=== PATIENT | male | born 1935 | race Caucasian/White ===

== ENCOUNTER 2018-04-26 15:42 | Inpatient (IN) | payer MEDICARE ==
--- NOTE | 2018-04-26 17:47 | RAD ---
HISTORY: chest pain COMPARISON: No prior. TECHNIQUE: Chest, one view. FINDINGS: LUNGS: Mild bibasilar atelectasis. Please note that chest x-ray has limited sensitivity for the detection of pulmonary masses. PLEURA: No significant pleural effusion identified. No definite pneumothorax . CARDIOVASCULAR: Median sternotomy wires. Cardiomegaly. Ectatic aorta. Dense atherosclerotic calcification present. OSSEOUS STRUCTURES: Degenerative changes. VISUALIZED UPPER ABDOMEN: Unremarkable. OTHER FINDINGS: None. IMPRESSION: Cardiomegaly. Ectatic aorta. Mild bibasilar atelectasis.
--- NOTE | 2018-04-26 17:53 | RAD ---
PROCEDURE: Radiographs of the pelvis. HISTORY: s/p fall - r/o fx COMPARISON: None available. FINDINGS: Examination limited by habitus. BONES: No acute displaced fracture. JOINTS: No dislocation. The sacroiliac joints appear intact. The pubic symphysis appears unremarkable. OTHER FINDINGS: Prostate radiation seeds. No significant joint effusion appreciated. Dense vascular calcifications. IMPRESSION: Limited single AP view provided of the pelvis without acute displaced fracture appreciated. Correlate clinically. CT of the pelvis recommended if high clinical index of suspicion for occult fracture.
[2018-04-26 18:14] LABS: BASO % 0.3 % (0.0-2.0); EOS # 0.1 K/uL (0.0-0.7); EOS % 1.7 % (0.0-4.0); HEMOGLOBIN 10.3 g/dL (12.0-18.0); LYMPH # 1.2 K/uL (1.0-4.3); LYMPH % 16.3 % (20.0-40.0); MEAN CELL VOLUME 84.7 fL (80.0-94.0); MEAN CORPUSCULAR HEMOGLOBIN 27.8 pg (27.0-31.0); MEAN CORPUSCULAR HGB CONC 32.9 g/dL (33.0-37.0); MEAN PLATELET VOLUME 7.9 fL (7.2-11.7); MONO # 0.6 K/uL (0.0-0.8); MONO % 8.3 % (0.0-10.0); NEUT # 5.6 K/uL (1.8-7.0); NEUT % 73.4 % (50.0-75.0); RBC 3.69 Mil/uL (4.40-5.90); RED CELL DISTRIBUTION WIDTH 14.9 % (11.5-14.5); WHITE BLOOD COUNT 7.6 K/uL (4.8-10.8)
--- NOTE | 2018-04-26 18:14 | C.PDOC ---
History Of Present Illness 82 y/o male with history of Alzheimer and Dementia brought to ED by family after patient found on floor at 2:30pm today. Patient states he fell and does not know when, complains of minimal pain to left pelvis. As per family patient had been declining in mentation rapidly and deny recent cough or fever. No other complaints at this time. <Melani GRAVESJarret - Last Filed: 04/26/18 18:15> - HPI History Per: Patient History/Exam Limitations: no limitations Onset/Duration Of Symptoms: Hrs <Melani GRAVESJarret - Last Filed: 04/26/18 18:15> <Hussein Hdez - Last Filed: 04/26/18 20:42> - HPI Chief Complaint (Nursing): Trauma Past Medical History Reviewed: Historical Data, Nursing Documentation, Vital Signs Vital Signs: Last Vital Signs Temp 98.1 F 04/26/18 15:51 Pulse 81 04/26/18 15:51 Resp 16 04/26/18 15:51 BP 151/52 H 04/26/18 15:51 Pulse Ox 98 04/26/18 15:51 - Medical History PMH: HTN Surgical History: Cholecystectomy Family History: States: No Known Family Hx - Social History Hx Alcohol Use: No Hx Substance Use: No - Immunization History Hx Tetanus Toxoid Vaccination: No Hx Influenza Vaccination: No Hx Pneumococcal Vaccination: No <Megganshital GRAVESJarret Last Filed: 04/26/18 18:15> Vital Signs: Last Vital Signs Temp 98.2 F 04/26/18 20:05 Pulse 60 04/26/18 20:05 Resp 16 04/26/18 20:05 BP 162/72 H 04/26/18 20:05 Pulse Ox 98 04/26/18 20:05 <Hussein Hdez - Last Filed: 04/26/18 20:42> Review Of Systems Constitutional: Negative for: Fever, Chills Gastrointestinal: Positive for: Abdominal Pain. Negative for: Nausea, Vomiting Skin: Negative for: Rash Neurological: Negative for: Headache <Melani GRAVESJarret Last Filed: 04/26/18 18:15> Physical Exam - Physical Exam Appears: Non-toxic, No Acute Distress Skin: Warm, Dry, No Rash Head: Atraumatic, Normacephalic Eye(s): bilateral: Normal Inspection Oral Mucosa: Dry Neck: Normal ROM, Supple Cardiovascular: Rhythm Regular Respiratory: Normal Breath Sounds, No Rales, No Rhonchi, No Wheezing Gastrointestinal/Abdominal: Soft, No Tenderness, No Guarding, No Rebound Extremity: Normal ROM, Capillary Refill (<2 seconds) Neurological/Psych: Oriented x3, Normal Speech <Jarret Polo DO Last Filed: 04/26/18 18:15> ED Course And Treatment ECG: Interpreted By Me, Viewed By Me ECG Rhythm: Sinus Rhythm Interpretation Of ECG: Bifascicular block, left axis deviation. Rate From EC (BPM) O2 Sat by Pulse Oximetry: 98 (RA) Pulse Ox Interpretation: Normal <Jarret Polo DO Last Filed: 04/26/18 18:15> - Laboratory Results Result Diagrams: 04/26/18 18:09 04/26/18 18:09 <Hussein Hdez - Last Filed: 04/26/18 20:42> Disposition <Jarret Polo DO Last Filed: 04/26/18 18:15> Discussed With : Rochelle Thurston Comment: accepted the patient on her service and took over the care at 8:41 PM Doctor Will See Patient In The: Hospital Counseled Patient/Family Regarding: Studies Performed, Diagnosis - Disposition Disposition Time: 19:00 - POA Present On Arrival: Falls Or Trauma, Poor Glycemic Control <Hussein Hdez - Last Filed: 04/26/18 20:42> - Disposition Disposition: HOSPITALIZED Condition: FAIR Forms: [facility] (Amharic) - Clinical Impression Clinical Impression: Contusion, Change in mental status, Dementia, Fall Critical Care Time - Scribe Statement The provider has reviewed the documentation as recorded by the Scribe Gena Avendaño All medical record entries made by the Scribe were at my direction and personally dictated by me. I have reviewed the chart and agree that the record accurately reflects my personal performance of the history, physical exam, medical decision making, and the department course for this patient. I have also personally directed, reviewed, and agree with the discharge instructions and disposition. <Jarret Polo DO Last Filed: 04/26/18 18:15> Decision To Admit <Jarret Polo DO Last Filed: 04/26/18 18:15> - Pt Status Changed To: Hospital Disposition Of: Inpatient - Admit Certification Admit to Inpatient:: After my assessment, the patient will require hospitalization for at least two midnights. This is because of the severity of symptoms shown, intensity of services needed, and/or the medical risk in this patient being treated as an outpatient. - InPatient: Physician Admission Certification: I certify that this patient requires 2 or more midnights of care for the following reason:: After my assessment, the patient will require hospitalization for at least two midnights. This is because of the severity of symptoms shown, intensity of services needed, and/or the medical risk in this patient being treated as an outpatient. - . Bed Request Type: Regular Admitting Physician: Rochelle Thurston <Hussein Hdez - Last Filed: 04/26/18 20:42> - . Patient Diagnosis: Contusion, Change in mental status, Dementia, Fall
[2018-04-26 18:24] LABS: INR 1.2; PROTHROMBIN TIME 12.7 SECONDS (9.7-12.2)
[2018-04-26 18:26] LABS: ALB/GLOB RATIO 1.1 (1.0-2.1); ALT/SGPT 21 U/L (21-72); AST/SGOT 30 U/L (17-59); BLOOD UREA NITROGEN 27 mg/dL (9-20); CALCIUM 9.6 mg/dl (8.6-10.4); GFR NON-AFRICAN AMERICAN 58
[2018-04-26] MEDS ORDERED: Sodium Chloride 0.9% 1,000 ML ONE (18:40)
[2018-04-26 18:49] LABS: URINE BACTERIA RARE (<OCC); URINE BILIRUBIN NEGATIVE (NEGATIVE); URINE BLOOD 1+ (NEGATIVE); URINE CLARITY Clear (Clear); URINE COLOR Yellow (YELLOW); URINE GLUCOSE (UA) NORMAL (Normal); URINE LEUKOCYTE ESTERASE NEG Leu/uL (Negative); URINE PROTEIN 1+ mg/dL (NEGATIVE); URINE UROBILINOGEN NORMAL mg/dL (0.2-1.0)
[2018-04-26] MEDS: Sodium Chloride 0.9% 1,000 ML IV SCH (19:10)
[2018-04-27 00:24] VITALS: RESP 20
[2018-04-27] MEDS: Sodium Chloride 0.9% 1,000 ML IV SCH ×2 (03:15→07:15)
--- NOTE | 2018-04-27 06:55 | CT ---
Date of service: 04/26/2018 PROCEDURE: CT HEAD WITHOUT CONTRAST. HISTORY: Head injury. COMPARISON: None available. TECHNIQUE: Axial computed tomography images were obtained through the head/brain without intravenous contrast. Radiation dose: Total exam DLP = 1099.78 mGy-cm. This CT exam was performed using one or more of the following dose reduction techniques: Automated exposure control, adjustment of the mA and/or kV according to patient size, and/or use of iterative reconstruction technique. FINDINGS: HEMORRHAGE: No intracranial hemorrhage. BRAIN: No mass effect or edema. Scattered focal lucencies in the subcortical and periventricular white matter suggestive for chronic microvascular ischemic change. VENTRICLES: Diffuse prominence of the ventricles consistent with atrophy. CALVARIUM: Unremarkable. PARANASAL SINUSES: Mild mucosal thickening of the ethmoid air cells. MASTOID AIR CELLS: Unremarkable as visualized. No inflammatory changes. OTHER FINDINGS: Intracranial arterial calcifications. IMPRESSION: No acute intracranial abnormality. Chronic microvascular ischemic change. Age-appropriate atrophy. Mild sinus mucosal disease. If symptoms persists, consider correlation with MRI. A preliminary report was generated at 7:53 p.m. on 04/26/[address] Jeremiah Subramanian from [employer].
[2018-04-27] MEDS: (Novolin R) Insulin Human Regular 100 units/ml vial SC SCH ×4 (08:42→21:37)
[2018-04-27] MEDS: Multiple Vitamins Tab PO SCH (09:57)
[2018-04-27] MEDS: POLYETHYLENE GLYCOL 3350 17 GM/Dose PACKET PO SCH (09:58)
[2018-04-27] MEDS: Enoxaparin 40 mg Syringe SC SCH (09:58)
--- NOTE | 2018-04-27 13:04 | PCM.PSYCH ---
Initial Psychiatric Evaluation - Initial Psychiatric Evaluation Chief Complaint (in patient's own words): "I'm OK" History of Present Illness and Precipitating Events: Patient seen, chart reviewed, case discussed. His 3 children were at bed side and they are also interviewed. Consult was asked for his AMS. HPI: As per the patients daughter, the patient is an 82-year-old , retired male with 9 adult children, who lives at home with his and one daughter. The patient was diagnosed with Alzheimers disease in January 2018. Prior to the diagnosis, the patient becoming increasingly forgetful for a couple months. In the past month, the patient has become verbally and physically abusive towards his and daughter, becoming easily agitated and irritable and having nights of restless sleep. He was also paranoid and blaming his with all sorts of irrational things. The patient is seen by a neurologist outpatient, who prescribed the patient Seroquel 25 mg at bed time and Aricept. The patient had a history of alcohol and tobacco use, but quit over 40 years ago. He is calmer now but has little insight and his MMSE is very low: 9 Past Psych History: denies Past Medical History: DM, HTN, HLD, CAD Family Psych History: Sister with Alzheimers disease Current Medications: Active Medications Generic Name Dose Route Start Last Admin Trade Name Shaye PRN Reason Stop Dose Admin Amlodipine Besylate 5 mg 04/27/18 10:00 04/27/18 09:57 Norvasc PO Not Given DAILY MARVIN Aspirin 81 mg 04/27/18 10:00 04/27/18 09:57 Ecotrin PO 81 mg DAILY MARVIN Administration Carvedilol 25 mg 04/27/18 10:00 04/27/18 09:59 Coreg PO Not Given BID MARVIN Clopidogrel Bisulfate 75 mg 04/27/18 10:00 04/27/18 09:58 Plavix PO 75 mg DAILY MARVIN Administration Donepezil HCl 10 mg 04/27/18 10:00 04/27/18 09:57 Aricept PO 10 mg DAILY MARVIN Administration Enoxaparin Sodium 40 mg 04/27/18 10:00 04/27/18 09:58 Lovenox SC 40 mg DAILY MARVIN Administration Glimepiride 2 mg 04/27/18 07:30 04/27/18 08:54 Amaryl PO Not Given ACBD MARVIN Sodium Chloride 1,000 mls @ 100 mls/hr 04/26/18 17:15 04/27/18 07:15 Sodium Chloride 0.9% IV 100 mls/hr .Q10H MARVIN Administration Insulin Human Regular 0 unit 04/27/18 07:30 04/27/18 12:28 Novolin R SC 2 units ACHS MARVIN Administration Protocol Lactulose 10 gm 04/26/18 22:18 Enulose PO DAILY PRN Constipation Losartan Potassium 25 mg 04/27/18 10:00 04/27/18 09:58 Cozaar PO Not Given DAILY MARVIN Multivitamins 1 tab 04/27/18 10:00 04/27/18 09:57 Hexavitamin PO 1 tab DAILY MARVIN Administration Polyethylene Glycol 17 gm 04/27/18 10:00 04/27/18 09:58 Miralax PO 17 gm DAILY MARVIN Administration Rosuvastatin Calcium 10 mg 04/27/18 22:00 Crestor PO HS MARVIN Tamsulosin HCl 0.4 mg 04/27/18 22:00 Flomax PO HS MARVIN Past Psychiatric History - Past Psychiatric History Previous Treatment History: None Pertinent Medical Hx (Current Medical&Sleep Prob, Allergies): Allergies Allergy/AdvReac Type Severity Reaction Status Date / Time No Known Allergies Allergy Verified 04/26/18 15:57 Aspirin [Ecotrin] 81 mg PO DAILY 04/26/18 Atorvastatin [Lipitor] 20 mg PO HS 04/26/18 Carvedilol [Coreg] 25 mg PO BID 04/26/18 Clopidogrel [Plavix] 75 mg PO DAILY 04/26/18 Glimepiride [amaRYL] 2 mg PO BID 04/26/18 Lactulose 10 gm PO DAILY 04/26/18 Linaclotide [Linzess] 290 mcg PO DAILY 04/26/18 Linagliptin [Tradjenta] 5 mg PO DAILY 04/26/18 Nitroglycerin 0.4 mg SL PRN PRN 04/26/18 Polyethylene Glycol 3350 [Miralax] 17 gm PO DAILY 04/26/18 Tamsulosin [Flomax] 0.4 mg PO DAILY 04/26/18 amLODIPine [Norvasc] 5 mg PO DAILY 04/26/18 Review of Systems - Neurological Neurological: Memory Loss - Psychiatric Psychiatric: Abnormal Sleep Pattern, Anxiety, Difficulty Concentrating, Irritability, Memory Loss, Mood Swings, Paranoia. absent: Hallucinations, Homicidal Ideation, Suicidal Ideation Mental Status Examination - Personal Presentation Personal Presentation: Looks stated age - Affect Affect: Constricted - Motor Activity Motor Activity: Calm - Reliability in Providing Information Reliability in Providing Information: Poor, due to cognitve impairment - Speech Speech: Organized - Mood Mood: Anxious - Formal Thought Process Formal Thought Process: No Impairment - Cognitive Functions Orientation: Person, Place ([facility]) DSM 5 DX - DSM 5 DSM 5 Diagnosis: Dementia, Alzheimer's type, with behavioral problems r/o delirium - Recommended/Plan of Treatment Treatment Recommendations and Plan of Treatment: Depakote for agitation Continue low dose seroquel at bedtime for now but d/c soon due to risks of use in dementia, albeit low Consider trazodone, ssri's, propranolol too Support and psychoed Close monitor Treat underlying conditions for possible delirium super-imposed on dementia 32 min
[2018-04-27] MEDS: Divalproex 250 mg DR Tab PO SCH (18:01)
--- NOTE | 2018-04-27 18:45 | CON ---
DATE: 04/27/2018 NEUROLOGY CONSULTATION CHIEF COMPLAINT: Change in mental status. HISTORY OF PRESENT ILLNESS: This is an 82-year-old man with history of type 2 diabetes mellitus, hyperlipidemia, hypertension, coronary artery disease with a family history of sister having Alzheimer's disease, who was recently diagnosed with Alzheimer's disease in 01/2008 by outpatient neurologist, has become increasingly forgetful for the past couple of months and has become verbally and physically abusive towards his and daughter and becomes easily agitated, having restless sleep at night. He is on Seroquel 25 mg p.o. at bedtime. The patient states he fell and does not know when, and he complains of no pain to his left pelvis. He has declining mentation, therefore, consulted. His Mini-Mental Status examination is 13/20. CT of the head showed age-appropriate atrophy and chronic ischemic changes. Psychiatry is on board. PAST MEDICAL HISTORY: As above. MEDICATIONS: Reviewed by nurse reconciliation sheet. ALLERGIES: NO KNOWN DRUG ALLERGIES. FAMILY HISTORY: Noncontributory. SOCIAL HISTORY: No illicit drug abuse, smoking, or ETOH abuse. REVIEW OF SYSTEMS: A 14-point review of systems negative except in the HPI. PHYSICAL EXAMINATION: GENERAL: The patient is sitting up in bed, in no acute distress. HEENT: Head is atraumatic, normocephalic. PERRLA. Extraocular movements intact. NECK: Supple. No JVD. No adenopathy noted. LUNGS: Clear to auscultation. No adventitious sounds. HEART: S1 and S2. Normal rate and rhythm. No murmurs, rubs, or gallops. ABDOMEN: Soft, nontender, nondistended. Bowel sounds present. EXTREMITIES: No clubbing. No cyanosis. Peripheral pulses are 2+ bilaterally. NEUROLOGIC: The patient is alert and oriented to self, not much of month or year. Recall after 5 minutes is 0/3. Poor attention span. Slow thought process. Slow cognitive thinking. Tangential thought process. Cranial nerves II through XII are intact. Motor exam: Moves all extremities equally. No pronator drift seen. Sensory exam: Decreased light touch to pinprick up to the calves bilaterally, decreased vibration of the toes. DTRs are 2+ throughout and 1 at both knees and ankles. Coordination: Gait deferred for now. LABORATORY DATA: Sodium is 139, potassium 4, chloride 104, carbon dioxide 24, BUN of 27, creatinine 1.2, random glucose 115. IMPRESSION: Change in mental status, Alzheimer's type dementia, behavioral disturbance with increasing cognitive decline. RECOMMENDATIONS: 1. Recommend Seroquel from 25 to 50 mg at bedtime. 2. Delirium precautions. 3. He is on Depakote, which will act as a mood stabilizer. 4. Continue Aricept at 10 mg. We will add Namenda another 10 mg for Alzheimer-type dementia. 5. Frequent orientation throughout the day and continue aspirin and Plavix for stroke prevention. Thank you for this consult. Jacky Pena MD
[2018-04-28 07:35] LABS: IRON 28 ug/dL (49-181)
[2018-04-28 07:37] LABS: HDL CHOLESTEROL 55 mg/dL (30-70)
[2018-04-28 07:44] LABS: % IRON SATURATION 10 (20-55); TOTAL IRON BINDING CAPACITY 278 ug/dL (250-450)
[2018-04-28 07:54] LABS: LDL CHOLESTEROL 60 mg/dL (0-129)
[2018-04-28] MEDS: (Novolin R) Insulin Human Regular 100 units/ml vial SC SCH ×3 (08:12→18:20)
[2018-04-28 08:26] LABS: FOLATE > 20.0 ng/mL
[2018-04-28] MEDS: POLYETHYLENE GLYCOL 3350 17 GM/Dose PACKET PO SCH (09:55)
[2018-04-28] MEDS: Divalproex 250 mg DR Tab PO SCH ×2 (09:55→18:19)
[2018-04-28] MEDS: Multiple Vitamins Tab PO SCH (09:55)
[2018-04-28] MEDS: Enoxaparin 40 mg Syringe SC SCH (09:55)
--- NOTE | 2018-04-28 10:12 | HP ---
The patient was seen and examined at bedside on 04/27/2018. CHIEF COMPLAINT: Alerted mental status. HISTORY OF PRESENT ILLNESS: The patient is an 82-year-old male with history of dementia, brought to the emergency department by family after the patient was found on the floor. The patient states that he fell and does not know when and what happened. He complains of minimal pain to the left pelvis. As per family, the patient is declining in the mentation rapidly, and denies recent cough or fever. No hematuria or hematochezia. No headache or dizziness. When I saw the patient early in the morning, two daughters and one son were standing at the bedside. They gave me history and told me that the patient's mental status is deteriorating, sometime he is getting aggressive and hard to control, and he lives with his , sometime is afraid of him. PAST MEDICAL HISTORY: Hypertension, cholecystectomy. FAMILY HISTORY: Father and mother noncontributory. HABITS: Never smoked. No drugs. No ethanol. REVIEW OF SYSTEMS: The patient was seen and examined at the bedside, sitting on the chair; that time he was fully awake and alert. No fever. No chills. No hematuria or hematochezia. No swelling of the legs. No headache or dizziness. PHYSICAL EXAMINATION: VITAL SIGNS: Temperature 98.2, pulse 60, respiratory rate 16, blood pressure 160/72, pulse oximetry 98. HEENT: Head, normocephalic and atraumatic. Eyes, PERRLA. Extraocular muscles intact. Conjunctivae clear. Nose patent. NECK: Supple. No carotid bruit, JVD, or thyromegaly. CHEST: Bilaterally symmetrical. HEART: S1, S2 positive. LUNGS: Clear to auscultation. ABDOMEN: Soft. Bowel sounds positive. No organomegaly. EXTREMITIES: No edema, no cyanosis. NEUROLOGIC: The patient is awake and alert, moving all four extremities. No focal deficit. LABORATORY DATA: White blood cell 7.6, hemoglobin 10.2, hematocrit 31.2, platelets 175. Sodium 139, potassium 4, BUN 27, creatinine 1.2, glucose 115. ASSESSMENT AND PLAN: The patient is an 82-year-old male with anemia, hyperglycemia, came with falls, poor glycemic control, trauma, altered mental status. Discussion done with the patient's daughter, both of the daughters. Psychiatric consult called with Dr. Raffaele Calloway, and Neurology consult called with Dr. Jacky Pena. CAT scan of the head and pelvis x-ray done. The patient has history of diabetes mellitus type 2, hypercholesterolemia, hypertension, coronary artery disease. Mental level is declining very fastly as per the patient. The patient had dementia with behavioral disturbances. Neurologist started Seroquel 25 to 50 precautions. He is on Depakote which act as a mood stabilizer. Continue Aricept. Dr. Pena added Namenda. Continue aspirin and Plavix for stroke prevention. Gastrointestinal and deep venous thrombosis prophylaxis. Limited single AP view provided of the pelvis without acute displaced fracture appreciated. According to CAT scan, no acute intracranial abnormality, chronic microvascular ischemic changes, age related atrophy, mild sinus mucosal disease. If symptoms persist, consider correlation with MRI. Discussion done with both of his daughters. Appreciated Dr. Jacky Pena's and Dr. Diomedes Modi's input. The patient need one-to-one. We will repeat labs. Rochelle Thurston MD
[2018-04-28] MEDS ORDERED: Glucagon Recombinant 1 mg Inj IM PRN (11:06)
[2018-04-28] MEDS ORDERED: Dextrose 50% SYRINGE Inj (50 ml) IV PRN (11:06)
[2018-04-28] MEDS ORDERED: Dextrose 5%/0.9% NS 1,000 ML IV SCH (11:15)
[2018-04-28 16:26] VITALS: BP 153/73; PULSE 98; TEMP 98.4; O2SAT 97
--- NOTE | 2018-04-29 05:14 | CARD ---
APPROVED REPORT Date of service: 04/26/2018 EKG Measurement Heart [id number] <Conclusion> Sinus rhythm with 1st degree AV block Right bundle branch block Left anterior fascicular block Bifascicular block Minimal voltage criteria for LVH, may be normal variant Abnormal ECG
== END 2018-04-28 20:45 | disposition left against medical advice (07) | DRG 57 ==
LOC: C.ER 15:42 → C.3T 20:39
PROVIDERS: ADMIT Internal Medicine; ATTEND Internal Medicine
DX: G30.9 Alzheimer's disease, unspecified (principal); F02.81 Dementia in other diseases classified elsewhere, unspecified severity, with behavioral disturbance; F05 Delirium due to known physiological condition; S30.0XXA Contusion of lower back and pelvis, initial encounter; E11.65 Type 2 diabetes mellitus with hyperglycemia; I10 Essential (primary) hypertension; I25.10 Atherosclerotic heart disease of native coronary artery without angina pectoris; D64.9 Anemia, unspecified; E78.00 Pure hypercholesterolemia, unspecified; E78.5 Hyperlipidemia, unspecified; W19.XXXA Unspecified fall, initial encounter; Z87.891 Personal history of nicotine dependence; Z82.0 Family history of epilepsy and other diseases of the nervous system; Y92.003 Bedroom of unspecified non-institutional (private) residence as the place of occurrence of the external cause